=== PATIENT | female | born 1960 | race Caucasian/White ===

== ENCOUNTER 2018-08-13 12:19 | Emergency (ER) | payer MEDICAID, SELFPAY ==
[2018-08-13 12:27] VITALS: BP 153/101; PULSE 108; RESP 16; TEMP 36.8; O2SAT 95; BMI 22.6
--- NOTE | 2018-08-13 12:43 | HMH.EDGENADL ---
ED Disposition Clinical Impression: Medical clearance for incarceration, Substance abuse Disposition: Home, Self-Care Condition on Discharge: Good Referrals: Julieta Vaughan [Primary Care Provider] - - Critical Care Critical Care Time: No Attestation: On 08/13/18, the high probability of a clinically significant, sudden or life threatening deterioration of the following system(s) required my full and direct attention, intervention and personal management. The time I documented below is in addition to time spent performing reported procedures but includes the following listed in this critical care notation. Medical Decision Making - Toni Inquiry Pt receiving controlled substance: No Vital Signs: 08/13/18 12:27 Temperature 98.2 F Temperature Source Oral Pulse Rate [Right Brachial] 108 H Respiratory Rate 16 Blood Pressure [Right Arm] 153/101 H Blood Pressure Mean [Right Arm] 118 Blood Pressure Source [Right Arm] Automatic Cuff Blood Pressure Position [Right Arm] Sitting 02 Sat by Pulse Oximetry 95 Oxygen Delivery Method Room Air General Adult HPI - General Chief complaint: Medical Clearance Stated complaint: Medical Clearance Time Seen by Provider: 08/13/18 12:43 Mode of Arrival: Ambulatory Limitations: No Limitations Description of Symptoms (Recalled from ER Triage Doc. by RN): Clearance for senior care - History of Present Illness HPI narrative: Brought in by police for medical clearance. She was brought in because of history of drug use. She says that she last used methamphetamine by smoking it at 3 AM. Used heroin yesterday. No alcohol use. States that she on Cymbalta. No other prescription medications and no other chronic medical problems. - Related Data Home Medications Medication Instructions Recorded Confirmed Duloxetine HCl [Cymbalta 30mg 20 mg PO DAILY 08/13/18 08/13/18 capsule] Allergies Allergy/AdvReac Type Severity Reaction Status Date / Time morphine [MORPHINE] Allergy Intermediate I-HIVES Unverified 02/06/17 14:49 [facility] History - Hepatitis A Screen Drug use history?: Yes High risk sexual behaviors?: No History of sexually transmitted infection?: No Currently employed?: No Childcare worker?: No Do you have indoor plumbing?: Yes Do you have electricity?: Yes Attestation statement:: This patient has been screened for Hepatitis A risk factors. I have reviewed the patient's past medical history: Yes ROS Obtained: Yes All systems reviewed & no additional complaints - Constitutional Constitutional: Denies fever(s), Reports night sweats - Cardiovascular Cardiovascular: Denies chest pain - Respiratory Respiratory: No dyspnea - Gastrointestinal Gastrointestingal: Denies: abdominal pain, diarrhea, vomiting - Integumentary/Breasts Skin/Breast: Reports other (Fear of skin cancer) Physical Exam - General General appearance: alert, anxious - Head Head exam: atraumatic, normocephalic - Eye Eye exam: Present: normal appearance, EOMI - ENT ENT exam: Present: mucous membranes moist - Neck Neck exam: Present: normal inspection, full ROM, trachea midline - Chest Chest inspection: Present: normal inspection, symmetric chest wall rise - Respiratory Respiratory exam: Present: normal lung sounds bilaterally. Absent: respiratory distress - Cardiovascular Cardiovascular exam: Present: regular rate, normal rhythm, normal heart sounds - Abdominal Exam Abdominal exam: Present: soft, normal bowel sounds. Absent: distention, tenderness - Extremities Exam Extremities exam: Present: normal inspection - Neurological Exam Neurological exam: Present: alert, oriented X3, CN II-XII intact. Absent: motor sensory deficit - Psychiatric Psychiatric exam: Present: anxious - Skin Skin exam: Present: warm, dry
[2018-08-13 12:59] VITALS: BP 140/85; PULSE 105; RESP 17; TEMP 36.9; O2SAT 96
== END 2018-08-13 13:00 | disposition home or self-care (01) ==
PROVIDERS: Emergency Provider Emergency Medicine; PCP Family Medicine
DX: F19.10 Other psychoactive substance abuse, uncomplicated (principal); Z88.5 Allergy status to narcotic agent
CPT/HCPCS: 99282

== ENCOUNTER 2024-03-31 21:02 | Emergency (ER) | payer MEDICAID, SELFPAY ==
[2024-03-31 21:02] VITALS: BP 157/87; PULSE 103; RESP 16; TEMP 36.8; O2SAT 98; BMI 24.0
--- NOTE | 2024-03-31 21:17 | XR_ITS ---
PROCEDURE INFORMATION: Exam: XR Chest Exam date and time: 03/31/2024 9:31 PM Age: 63 years old Clinical indication: Pain; Chest pressure; Additional info: Cp TECHNIQUE: Imaging protocol: Radiologic exam of the chest. Views: 1 view. COMPARISON: No relevant prior studies available. FINDINGS: Lungs: Unremarkable. No consolidation. Pleural spaces: Unremarkable. No pleural effusion. No pneumothorax. Heart/Mediastinum: Unremarkable. No cardiomegaly. Bones/joints: Unremarkable. IMPRESSION: No acute findings.
--- NOTE | 2024-03-31 21:18 | ECG_ITS ---
APPROVED REPORT Exam: Resting ECG HR:96 bpm ECG Measurements Heart Rate 96 AXES MO 143 P 62 QRSd 90 QRS 71 QT 340 T 74 QTc 394 Conclusion SINUS RHYTHM NORMAL ECG Electronically signed by : PRAMOD SANTANA, 04/04/2024 06:08:27
[2024-03-31 21:38] LABS: Basophils # 0.1 K/mm3 (0-0.2); Basophils % 0.7 % (0.1-2.0); Eosinophils # 0.1 K/mm3 (0.0-0.4); Eosinophils % 1.3 % (0.1-12.0); Hemoglobin 13.3 g/dL (12.2-16.2); Lymphocytes # 2.3 K/mm3 (0.7-4.5); Lymphocytes % 23.3 % (10-50); Mean Corpuscular HGB Conc 33.3 g/dL (31.8-35.4); Mean Corpuscular Volume 87.1 fl (81-99); Mean Platelet Volume 8.3 fl (7.4-10.4); Monocytes # 0.9 K/mm3 (0.1-1.0); Neutrophils # 6.5 K/mm3 (1.8-7.8); Neutrophils % 65.4 % (37.0-80.0); Platelet Count 374 K/mm3 (142-424); Red Blood Count 4.59 M/mm3 (4.20-5.40); Red Cell Distribution Width 13.3 % (11.5-17.5); White Blood Count 9.9 K/mm3 (4.8-10.8)
[2024-03-31 21:45] VITALS: BP 151/88; PULSE 101; O2SAT 97
[2024-03-31] MEDS: ASPIRIN 81MG CHEWABLE TABLET 324 MG PO (21:53)
--- NOTE | 2024-03-31 21:54 | PC.NURSE ---
Pt here in police custody States she has chest pain. Pt in sinus rhythm per EKG awake alert and oriented x3 Skin pink warm and dry Resp full and easy Speech clear and appropriate
[2024-03-31 22:05] LABS: Albumin Level 4.7 g/dl (3.5-5.0); Chloride 102 mmol/L (98-107); Potassium 5.2 mmoL/L (3.5-5.1); Sodium 138 mmol/L (136-145)
[2024-03-31 22:07] LABS: Blood Urea Nitrogen 31 mg/dl (7-17); Creatinine Clearance Estimated 59 mL/min (50-200); Estimated Glomerular Filt Rate 85 ml/min (>60); GFR (African American) 103 ML/MIN (>60)
[2024-03-31 22:08] LABS: Alanine Aminotransferase 18 U/L (12-78); Albumin/Globulin Ratio 1.4 (1.1-1.8); Alkaline Phosphatase 72 U/L (38-126); Anion Gap 15.2 mEq/L (5-15); Aspartate Amino Transferase 35 U/L (14-36); Bilirubin,Total 0.9 mg/dl (0.2-1.3); Calcium 9.6 mg/dl (8.4-10.2); Carbon Dioxide 26 mmol/L (22.0-30.0); Globulin 3.3 g/dL (1.3-3.2); Glucose 101 mg/dl (74-100)
[2024-03-31 22:18] VITALS: BP 103/72; PULSE 59; O2SAT 95
[2024-03-31 22:21] LABS: Troponin I < 0.01 ng/ml (0.00-0.034)
[2024-03-31 22:46] VITALS: BP 123/77; PULSE 96; O2SAT 97
--- NOTE | 2024-03-31 22:52 | PC.NURSE ---
Pt resting quietly in bed
--- NOTE | 2024-03-31 23:08 | HMH.EDCP ---
Discharge Plan Disposition Patient Disposition: Home, Self-Care Condition: Good Referrals Follow up/Referrals: Julieta Vaughan [Primary Care Provider] - See instructions Activity Restrictions/Add. Instructions Additional Instructions/Restrictions: You were evaluated in the ER and are appropriate for discharge at this time. Avoid all illicit substances including meth. Make an appointment with your primary care doctor for reevaluation in 2 to 3 days. Asked them to recheck your potassium. Return to the ER with new, worsening, or otherwise concerning symptoms. Clinical Impressions Clinical Impression: Substance abuse, Chest pain, Methamphetamine use, Anxiety Print Language Print Language: Portuguese Discharge ED Provider: Zeke Larose General Chief Complaint: Chest Pain Stated Complaint: med clearance Time Seen by Provider: 03/31/24 21:16 Mode of Arrival: Ambulatory Source of Information: Patient and Law Enforcement Limitations: No Limitations Description of Symptoms (Recalled from ER Triage Doc. by RN): Patient ambulatory to triage with complaints of chest pain. Patient currently arrested and in police custody. Patient states that her chest pain started when she was arrested at [facility] approx 2100. SHe describes her pain as aching and pressure to which it radiates between her shoulder blades. Patient denies SOA. Pt states that she relapsed last night on meth, and is also upset about that as well. History of Present Illness HPI narrative: 63-year-old female with history of substance abuse presents to the ER complaining of chest pain. She presents with law enforcement who is requesting medical clearance for incarceration. Patient describes a pressure and ache like her heart is trying to squeeze through a small hole in the front of the chest. She has no trouble breathing. She reports she is anxious and stressed because she just relapsed on meth after reportedly being sober for 2 years. She states she has had pain like this in the past and never been evaluated for it because she was never worried about it. Patient is tearful and clearly anxious. She denies other illicit substances. Pain reportedly started 2 hours prior to arrival. She denies fevers, headache, dizziness, numbness, tingling, weakness, abdominal pain, diarrhea, nausea, vomiting, cough, congestion, back pain, or traumatic injury. No other complaints at this time. Related Data Allergies Allergy/AdvReac Type Severity Reaction Status Date / Time morphine (MORPHINE) Allergy Intermediate I-HIVES Verified 03/31/24 21:47 [facility] Disclaimer: The information contained in this section may have been updated after the patient was seen, as this information can be updated by other users. Social History Smoking Status: Current every day smoker alcohol intake: current current occupational status: other Travel in the last 8 weeks: None Other Medical History Have you received the Flu Vaccine for this season: No Have you received the Pneumonia Vaccine: No ROS Obtained: Yes Systems reviewed as appropriate & no additional complaints except as documented Per HPI Physical Exam General General appearance: alert and in no apparent distress Comment: Patient anxious and tearful but nontoxic, not in extremis Head Head exam: atraumatic and normocephalic Eye Eye exam: Present PERRL and EOMI ENT ENT exam: Present normal oropharynx and mucous membranes moist Neck Neck exam: Present normal inspection and full ROM; Absent tenderness or lymphadenopathy Chest Chest inspection: Present symmetric chest wall rise; Absent tenderness Respiratory Respiratory exam: Present normal lung sounds bilaterally; Absent respiratory distress, wheezes or stridor Cardiovascular Cardiovascular exam: Present normal rhythm and tachycardia (Heart rate 98-105 during exam) Abdominal Exam Abdominal exam: Present soft; Absent distention, tenderness, guarding or rebound Extremities Exam Extremities exam: Present full ROM; Absent edema Back Exam Back exam: Absent tenderness, CVA tenderness (R) or CVA tenderness (L) Neurological Exam Neurological exam: Present alert and oriented X3; Absent motor sensory deficit Psychiatric Psychiatric exam: Present normal affect and normal mood Skin Skin exam: Present warm and dry HEART Score HEART Score HEART Score assessment performed?: Yes History (anamnesis): Slightly suspicious ECG: Normal Age: 45-65 years Risk factors: No known risk factors Troponin: </= normal limit HEART Score: 1 Critical Care Critical Care Time Critical Care Time: No Medical Decision Making Medical Records Medical records reviewed: Yes I reviewed the patient's medical records. MR Comment: Patient's only other visible encounter within our system was in 2019 when patient was also evaluated for medical clearance for incarceration after drug use, specifically methamphetamine. Toni Inquiry Pt receiving controlled substance: No Vital Signs Vital Signs: 03/31/24 21:02 03/31/24 21:45 03/31/24 22:18 Temperature 98.3 F Temperature Source Oral Pulse Rate 101 H 59 L Pulse Rate [Right] 103 H Respiratory Rate 16 Blood Pressure 151/88 H 103/72 L Blood Pressure [Right Arm] 157/87 H Blood Pressure Mean Blood Pressure Mean [Right Arm] 110 Blood Pressure Source [Right Arm] Automatic Cuff Blood Pressure Position [Right Arm] Supine 02 Sat by Pulse Oximetry 98 97 95 Oxygen Delivery Method Room Air Room Air Room Air 03/31/24 22:46 03/31/24 23:30 03/31/24 23:45 Temperature Temperature Source Pulse Rate 96 H 101 H 93 H Pulse Rate [Right] Respiratory Rate 18 18 Blood Pressure 123/77 127/63 117/77 Blood Pressure [Right Arm] Blood Pressure Mean Blood Pressure Mean [Right Arm] Blood Pressure Source [Right Arm] Blood Pressure Position [Right Arm] 02 Sat by Pulse Oximetry 97 98 97 Oxygen Delivery Method Room Air Room Air Room Air 04/01/24 00:00 04/01/24 00:16 04/01/24 00:29 Temperature Temperature Source Pulse Rate 92 H 68 Pulse Rate [Right] Respiratory Rate 15 28 H 19 Blood Pressure 120/71 133/97 H 149/88 H Blood Pressure [Right Arm] Blood Pressure Mean Blood Pressure Mean [Right Arm] Blood Pressure Source [Right Arm] Blood Pressure Position [Right Arm] 02 Sat by Pulse Oximetry 95 95 Oxygen Delivery Method Room Air Room Air Room Air 04/01/24 00:30 04/01/24 00:45 04/01/24 01:01 Temperature Temperature Source Pulse Rate Pulse Rate [Right] Respiratory Rate 22 19 Blood Pressure 133/89 133/108 H 143/88 H Blood Pressure [Right Arm] Blood Pressure Mean 106 Blood Pressure Mean [Right Arm] Blood Pressure Source [Right Arm] Blood Pressure Position [Right Arm] 02 Sat by Pulse Oximetry Oxygen Delivery Method Room Air Lab Data Labs: Lab Results 03/31/24 21:25: WBC 9.9, RBC 4.59, Hgb 13.3, Hct 40.0, MCV 87.1, MCH 29.0, MCHC 33.3, RDW 13.3, Plt Count 374, MPV 8.3, Neut % (Auto) 65.4, Lymph % (Auto) 23.3, [place] % (Auto) 9.0, Eos % (Auto) 1.3, Baso % (Auto) 0.7, Neut # (Auto) 6.5, Lymph # (Auto) 2.3, [place] # (Auto) 0.9, Eos # (Auto) 0.1, Baso # (Auto) 0.1, D-Dimer 0.74 H, Sodium 138, Potassium 5.2 H, Chloride 102, Carbon Dioxide 26, Anion Gap 15.2 H, BUN 31 H, Creatinine 0.70, Estimated Creat Clear 59, Estimated GFR 85, Est GFR ( Amer) 103, Glucose 101 H, Calcium 9.6, Total Bilirubin 0.9, AST 35, ALT 18, Alkaline Phosphatase 72, Troponin I < 0.01, Total Protein 8.0, Albumin 4.7, Globulin 3.3 H, Albumin/Globulin Ratio 1.4 04/01/24 00:35: Potassium 5.1, Troponin I < 0.01 03/31/24 21:25 04/01/24 00:35 Response Orders (Tests/Meds): ED MEDICATIONS Discontinued Medications Generic Name Dose Route Start Last Admin Trade Name Freq PRN Reason Stop Dose Admin Aspirin 324 mg 03/31/24 21:17 03/31/24 21:53 Aspirin 81mg Chewable Tablet PO 03/31/24 21:18 324 mg ONCE ONE Administration Sodium Chloride 1,000 mls @ 999 mls/hr 03/31/24 23:16 03/31/24 23:20 Sod Chlor 0.9% 1000ml Bag IV 04/01/24 00:16 999 mls/hr .Q1H1M ONE Administration Lorazepam 0.5 mg 03/31/24 23:06 03/31/24 23:11 Lorazepam 0.5mg Tablet PO 03/31/24 23:07 0.5 mg ONCE ONE Administration ORDERS Category Date Time Status CXR --portable [XR chest portable] Stat Exams 03/31/24 21:17 Completed CBC w/Auto Diff [Complete Blood Count Auto Diff] Stat Lab 03/31/24 21:25 Completed CMP [Comprehensive Metabolic Panel] Stat Lab 03/31/24 21:25 Completed D-Dimer Stat Lab 03/31/24 21:25 Completed Potassium Stat Lab 04/01/24 00:35 Completed Trop I [Troponin I] Stat Lab 03/31/24 21:25 Completed Troponin I Q3H Lab 04/01/24 00:35 Completed Troponin I Q3H Lab 04/01/24 03:30 Ordered EKG Request [ECG Request] Stat Y 03/31/24 21:17 Completed MDM Narrative Medical Decision Narrative: In summary, this 63-year-old female with history of substance abuse which is a comorbidity of her current presentation and increases her overall morbidity as well as complicates her social determinants of health increasing risk of relapse, also increasing risk of overdose, cardiac complications from stimulant use. Patient presents to the emergency department today with law enforcement for medical clearance, she reports chest pain as described in the HPI. On initial evaluation patient is borderline tachycardic with heart rate in the upper 90s to low 100s, normotensive, afebrile, tearful and anxious, exam is otherwise benign. Differential diagnosis includes but is not limited to ACS, PE, anxiety, esophageal spasm, drug intoxication, considered arrhythmia, electrolyte abnormality, pneumothorax, pneumonia, among others. Based on these concerns, I ordered serum labs, cardiac workup. ECG personally interpreted demonstrates normal sinus rhythm, rate 96, normal axis, normal NH and QTc, no STEMI. Patient received low-dose oral Ativan for treatment of anxiety. Labs personally reviewed demonstrate Normal CBC, CMP with mild prerenal azotemia. Patient has trace hyperkalemia with potassium 5.2, no hyperacute changes on ECG, patient is actively drinking water and tolerating oral intake, initial troponin undetectably low less than 0.01. Patient receiving IV fluids. Chest x-ray personally interpreted does not demonstrate acute intrathoracic abnormality. Specifically I do not appreciate pneumothorax, pneumonia, or widened mediastinum. See radiology read for final interpretation. Patient continues to be stable and was placed into ED observation at 2310 on continued cardiac monitoring for serial troponins to rule out evolving [place] and preclude unnecessary admission. D-dimer 0.74, by years criteria PE is excluded. No CTA PE indicated. Patient responded very well to the Ativan, her anxiety has resolved, law enforcement also left and she is no longer under arrest. She has no chest pain now. Repeat troponin also undetectably low less than 0.01. Patient remained hemodynamically stable with no instability, no concerning changes in her vitals, chest pain improved, with repeat troponin also undetectably low and reassuring repeat ECG, patient is appropriate for discharge at this time. Patient was given instructions on symptomatic management, follow up instructions, and return precautions for the emergency department. Patient indicated understanding and was discharged in stable condition. Total time in ED observation: 2 hours 35 minutes I spent less than 30 minutes preparing for this discharge.
[2024-03-31] MEDS: LORazepam 0.5MG TABLET 0.5 MG PO (23:11)
[2024-03-31] MEDS: 0.9 % SODIUM CHLORIDE 1000ML 1,000 ML 999 ML IV (23:20)
[2024-03-31 23:23] LABS: D-Dimer 0.74 ug/mL (0.0-0.5)
[2024-03-31 23:30] VITALS: BP 127/63; PULSE 101; RESP 18; O2SAT 98
[2024-03-31 23:45] VITALS: BP 117/77; PULSE 93; RESP 18; O2SAT 97
[2024-04-01] VITALS (9 sets, daily range): BP systolic 120–149; BP diastolic 71–108; PULSE 68–92; RESP 15–28; TEMP 36.8; O2SAT 95–98
--- NOTE | 2024-04-01 00:34 | PC.NURSE ---
Repeat troponin drawn and sent to lab
[2024-04-01 00:50] LABS: Potassium 5.1 mmoL/L (3.5-5.1)
--- NOTE | 2024-04-01 00:52 | ECG_ITS ---
APPROVED REPORT Exam: Resting ECG HR:94 bpm ECG Measurements Heart Rate 94 AXES [place] 139 P 76 QRSd 89 QRS 78 QT 379 T 80 QTc 431 Conclusion SINUS RHYTHM NORMAL ECG Electronically signed by : PRAMOD SANTANA, 04/01/2024 06:55:07
[2024-04-01 01:19] LABS: Troponin I < 0.01 ng/ml (0.00-0.034)
== END 2024-04-01 02:03 | disposition home or self-care (01) ==
PROVIDERS: Emergency Medicine; Emergency Provider Emergency Medicine; PCP Family Medicine
DX: R07.9 Chest pain, unspecified (principal); F41.9 Anxiety disorder, unspecified; F15.10 Other stimulant abuse, uncomplicated; F19.10 Other psychoactive substance abuse, uncomplicated; Z72.0 Tobacco use
CPT/HCPCS: 71045; 80053; 84132; 84484; 85025; 85378; 93005; 96360; 99284; J7030